=== PATIENT | female | born 1950 | race Caucasian/White ===

== ENCOUNTER → 2020-01-29 12:41 | Outpatient (CLI) | payer OTHER, SELFPAY ==
--- NOTE | 2020-01-29 12:44 | DI.RAD.S_ITS ---
PROCEDURE: XR FOOT LT MIN 3V INDICATIONS: Progressive bilateral foot pain TECHNIQUE: 3 views of the foot were acquired. COMPARISON: None. FINDINGS: Bones: No fractures or dislocations. No suspicious bony lesions. Postsurgical changes compatible with first tarsal-metatarsal joint arthrodesis. 2 orthopedic screws have been placed across the first tarsal-metatarsal joint. Orthopedic screws are intact. No lucencies are identified at the bone-hardware interface. Soft tissues: No tibiotalar joint effusion. Achilles tendon appears normal. IMPRESSION: No fracture. No acute osseous lesion. If symptoms and/or clinical suspicion for pathology persists, further assessment with repeat radiographs (7-10 days) or advanced imaging (e.g. CT, MRI or bone scan) may be helpful. Dictated by: Consuelo Nicole MD, PhD on 01/29/2020 at 16:54 Approved by: Consuelo Nicole MD, PhD on 01/29/2020 at 16:55
--- NOTE | 2020-01-29 12:44 | DI.RAD.S_ITS ---
PROCEDURE: XR FOOT RT MIN 3V INDICATIONS: Progressive bilateral foot pain TECHNIQUE: 3 views of the foot were acquired. COMPARISON: None. FINDINGS: Bones: No fractures or dislocations. No suspicious bony lesions. Small dorsal and plantar calcaneal bone spurs. Soft tissues: No tibiotalar joint effusion. Achilles tendon appears normal. IMPRESSION: No fracture. No acute osseous lesion. If symptoms and/or clinical suspicion for pathology persists, further assessment with repeat radiographs (7-10 days) or advanced imaging (e.g. CT, MRI or bone scan) may be helpful. Dictated by: Consuelo Nicole MD, PhD on 01/29/2020 at 16:55 Approved by: Consuelo Nicole MD, PhD on 01/29/2020 at 16:56
== END ==
PROVIDERS: PCP Family Medicine; Referring Provider Family Medicine; Visit Provider Family Medicine
DX: M79.672 Pain in left foot (principal); M79.671 Pain in right foot; M77.31 Calcaneal spur, right foot; Z98.1 Arthrodesis status
CPT/HCPCS: 73630

== ENCOUNTER → 2020-10-07 12:27 | Outpatient (CLI) | payer OTHER, SELFPAY ==
--- NOTE | 2020-10-07 12:30 | DI.RAD.S_ITS ---
PROCEDURE: XR FOOT LT MIN 3V INDICATIONS: L pinky toe wound r/o osteomyelitis w/ trauma TECHNIQUE: 3 views of the foot were acquired. COMPARISON: [facility], CR, XR FOOT LT MIN 3V, 01/29/2020, 12:37. [facility], CR, XR FOOT RT MIN 3V, 01/29/2020, 12:37. FINDINGS: Bones: Since the prior examination, there is believed to be progressive lucency involving the distal aspect of the proximal phalanx of the 5th toe. There is chronic dislocation of the 5th toe. Stable 1st tarsometatarsal joint postoperative hardware is seen. Age-appropriate bony degenerative changes are seen. Soft tissues: Distal soft tissue swelling is seen. IMPRESSION: Findings suspicious for osteomyelitis involving the distal aspect of the proximal phalanx of the 5th toe. If it would be helpful for clinical management decision making, please consider a dedicated forefoot MRI (without and with contrast) for further evaluation (assuming that there is no contraindication). Dictated by: Jose Cifuentes M.D. on 10/07/2020 at 11:44 Approved by: Jose Cifuentes M.D. on 10/07/2020 at 11:47
== END ==
PROVIDERS: PCP Family Medicine; Referring Provider Nurse Practitioner; Visit Provider Nurse Practitioner
DX: S91.106A Unspecified open wound of unspecified lesser toe(s) without damage to nail, initial encounter (principal); M79.89 Other specified soft tissue disorders
CPT/HCPCS: 73630

== ENCOUNTER 2020-10-07 13:56 | Emergency (ER) | payer OTHER, SELFPAY ==
[2020-10-07 14:18] VITALS: PULSE 71; RESP 12; TEMP 36.5; O2SAT 99
--- NOTE | 2020-10-07 16:08 | ED_ITS ---
HPI - Skin/Abscess/Foreign Bdy <GRIS Lira - Last Filed: 10/07/20 19:05> General Chief complaint: Skin/Abscess/Foreign Body Stated complaint: infection on left pinky toe, x 1 days Time Seen by Provider: 10/07/20 15:04 Source: patient Mode of arrival: Wheelchair Limitations: no limitations History of Present Illness HPI narrative: This is a 70-year-old female, former smoker, who has past medical history of hypertension, epilepsy, multiple foot surgeries presents to ED with chief complain of left 5th toe infection and pain after she was referred to [facility]. Patient reports initially injured affected toe 5 days ago after she hit on a chair. She is not sure if there was skin injury associated with this. She noticed warmth and redness to affected toe and metatarsal started 3-4 days ago and became concerned for infection. Patient denies fever, chills, nausea or vomiting, chest pain, dyspnea. Patient denies diabetes or immunocompromised condition. Patient's is Dr. Adamson at [facility] due to foot issues and nail care. Patient denies known exposure to COVID. X-ray was taken during today's walk-in clinic visit which indicates progressive lucency involving the distal aspect of proximal phalanx of the 5th toe on left foot. There is chronic dislocation of the 5th toe. Findings suspicious for osteomyelitis and recommended dedicated forefoot MRI with and without contrast for further evaluation. Related Data Home Medications Medication Instructions Recorded Confirmed ibuprofen PRN #0 08/27/16 10/07/20 omeprazole QDAY #0 08/27/16 10/07/20 Saccharomyces boulardii 250 mg 250 mg PO BID 01/29/20 10/07/20 capsule amlodipine 10 mg tablet 10 mg PO tab 01/29/20 10/07/20 dorzolamide 22.3 mg-timolol 6.8 EYE-LEFT 01/29/20 10/07/20 mg/mL eye drops erythromycin with ethanol 2 % TOP 01/29/20 10/07/20 topical gel ibandronate 150 mg tablet mg PO 01/29/20 10/07/20 dorzolamide 22.3 mg-timolol 6.8 EYE-BOTH 04/16/20 10/07/20 mg/mL eye drops ferrous sulfate PO 04/16/20 10/07/20 Previous Rx's Medication Instructions Recorded diclofenac sodium 1 % topical gel 2 gram TOP QID #100 gram 04/03/20 lisinopril 5 mg tablet 5 mg PO DAILY #90 tab 05/26/20 propranolol 10 mg tablet 10 mg PO BID #180 tab 05/28/20 triamcinolone acetonide 0.1 % 1 applictn TOP DAILY #30 gram 05/30/20 topical cream levetiracetam 500 mg tablet 500 mg PO BEDTIME #90 tab 07/24/20 levetiracetam 750 mg tablet 750 mg PO DAILY #90 tab 07/24/20 tramadol 50 mg tablet 50 mg PO Q8H #90 tab 07/24/20 gabapentin 300 mg capsule 300 mg PO BID #180 cap 08/09/20 amoxicillin-pot clavulanate 1 tab PO BID #20 tab 10/07/20 [Augmentin] doxycycline hyclate 100 mg capsule 100 mg PO BID 7 Days #14 cap 10/07/20 mupirocin 2 % topical ointment 1 applic TOPICAL BID #15 g 10/07/20 Allergies Allergy/AdvReac Type Severity Reaction Status Date / Time No Known Drug Allergies Allergy Verified 10/07/20 12:30 Review of Systems <GRIS Lira - Last Filed: 10/07/20 19:05> Review of Systems Narrative: General: Denies fever, chills, fatigue, malaise, sweats. HEENT: Denies sinus pain, ear pain, sore throat, difficulty swallowing, dizziness. Respiratory: Denies dyspnea, cough, wheezing, hemoptysis, sputum. Cardiovascular: Denies chest pain, palpitations, orthopnea, edema. Gastrointestinal: Denies nausea, vomiting, abdominal pain, diarrhea, constipation, melena. : Denies dysuria, frequency, incontinence, hematuria, urinary retention. Musculoskeletal: See HPI Skin: See HPI Patient History <GRIS Lira - Last Filed: 10/07/20 19:05> Medical History Bilateral bunions Claudication Epilepsy Fractures Hallux valgus History of urinary incontinence Hypertension Low iron (~2018) Medicare annual wellness visit, subsequent Neuropathy Seizure (~2016) Seizure grand mal Smoker Substance abuse (~2009) UTI (urinary tract infection) Surgical History Anesthesia History of bunionectomy (~2004) History of colonoscopy (~2018) History of esophagogastroduodenoscopy (EGD) (~2018) History of hysterectomy (~1989) Retinal detachment (~2018) Family History Father History of heart disease Mother Cancer Social History Smoking Status: Current every day smoker Tobacco: How many years used: 14 alcohol intake: former (Quit 2009 ) substance use type: marijuana (foot pain ) Smoking Status: Current every day smoker Substance Use Type: marijuana Exam <Antony GRIS Garcia - Last Filed: 10/07/20 19:05> Narrative Exam Narrative: GEN: Alert, oriented x 3, well appearing and nourished, and in no acute distress. Head: Normal cephalic, atraumatic. No scalp or temporal tenderness, palpable mass or rash. EYES: Pupils are equal, round, and reactive to light and accommodation. Extraocular muscles are intact bilaterally. There is no subconjunctival hemorrhage, exudate and sclera non-icteric. ENT: Hearing grossly intact. Nose without bleeding, purulent discharge or deviation. Mucous membrane moist, no mucosal lesion. Throat without erythema, tonsillar hypertrophy or exudate. Uvula in midline, airway patent. Neck: Trachea in midline. No JVD, non-tender without lymphadenopathy. No masses or thyroid megaly. Supple, non-tender and no meningeal signs. CARDIAC: Normal regular rate and rhythm without murmurs, gallops, or rubs. No chest wall tenderness. No peripheral edema, cyanosis or pallor. Capillary refill is less than 2 seconds. RESPIRATORY: Lungs are clear to auscultate bilaterally. No cough, wheezes, rales, or rhonchi. No stridor, respiratory distress, increase work of breathing, or accessary muscle used. ABD: Abdomen soft, nontender and non-distended. No guarding or rebound tenderness to palpate. Bowel sounds are normal in all 4 quadrants. There is no palpable masses or organomegaly. EXT: Left foot with Old surgical incision without signs of infection near 2nd metatarsal. Faint pulse on dorsal pedius bilaterally with intact sensation. Warmth, diffused mild erythema extending to left 5th toe to metatarsal. SKIN: Mild redness to left lateral metatarsal and toe with ulcerated skin lesion in medial aspect of 5th toe with light yellowish drainage/eschar. Affected site warm to touch. Warm, dry, normal color for patient. BACK: Nontender without deformity or crepitance. No flank tenderness. NEUROLOGICAL: Alert and oriented to place, time and person. Sensation and motor function intact bilaterally. No facial droops, dysphasia. PSYCHIATRIC: Good judgement and reason, without hallucinations, abnormal affect or abnormal behaviors during the examination. Patient is not suicidal. Initial Vital Signs Initial Vital Signs: Vital Signs Temperature 97.7 F 10/07/20 14:18 Pulse Rate 71 10/07/20 14:18 Respiratory Rate 12 10/07/20 14:18 Pulse Oximetry 99 10/07/20 14:18 <Matias Olivia DO - Last Filed: 10/07/20 19:21> Initial Vital Signs Initial Vital Signs: Vital Signs Temperature 97.7 F 10/07/20 14:18 Pulse Rate 71 10/07/20 14:18 Respiratory Rate 12 10/07/20 14:18 Pulse Oximetry 99 10/07/20 14:18 Scores <Antony EdwardsEVENS WilkersonP - Last Filed: 10/07/20 19:05> GCS [place] coma scale eye opening: Spontaneous [place] coma scale verbal response: Orientated Abhijit coma scale motor response: Obey commands Abhijit coma scale total score: 15 Course <[facility] Wil[facility]erson - Last Filed: 10/07/20 19:05> Orders Ordered: ED Orders 10/07/20 16:11 MR foot LT wo/w con Stat 10/07/20 16:37 C-Reactive Protein Quant Stat Complete Blood Count AUTO DIFF Stat Comprehensive Metabolic Panel Stat Erythrocyte Sedimentation Rate Stat Lactate (Lactic Acid) Stat Procalcitonin Stat Prolactin Stat 10/07/20 16:48 Blood Culture Stat 10/07/20 19:13 Wound Culture and Gram Stain Stat Reevaluation(s) Reevaluation #1: It has been challenging getting clear HPI nitially from the patient and she has been refusing full set of vs and wound culture. Patient provided with information and status as best as I can and at my best abilities. Waiting for MRI test results and informed patient about this. Patient provided nutritional support. Time: 18:20 Vital Signs Vital signs: Vital Signs - 8 hr 10/07/20 14:18 10/07/20 17:48 10/07/20 18:56 Temperature 97.7 F Pulse Rate 71 93 H 82 Respiratory Rate 12 Blood Pressure 145/85 H 149/69 H Pulse Oximetry 99 95 96 10/07/20 18:58 Temperature Pulse Rate 76 Respiratory Rate 18 Blood Pressure 149/69 H Pulse Oximetry 97 <Matias Olivia DO - Last Filed: 10/07/20 19:21> Orders Ordered: ED Orders 10/07/20 16:11 MR foot LT wo/w con Stat 10/07/20 16:37 C-Reactive Protein Quant Stat Complete Blood Count AUTO DIFF Stat Comprehensive Metabolic Panel Stat Erythrocyte Sedimentation Rate Stat Lactate (Lactic Acid) Stat Procalcitonin Stat Prolactin Stat 10/07/20 16:48 Blood Culture Stat 10/07/20 19:13 Wound Culture and Gram Stain Stat Vital Signs Vital signs: Vital Signs - 8 hr 10/07/20 14:18 10/07/20 17:48 10/07/20 18:56 Temperature 97.7 F Pulse Rate 71 93 H 82 Respiratory Rate 12 Blood Pressure 145/85 H 149/69 H Pulse Oximetry 99 95 96 10/07/20 18:58 Temperature Pulse Rate 76 Respiratory Rate 18 Blood Pressure 149/69 H Pulse Oximetry 97 MDM - Skin/Abscess/Foreign Bdy <GRIS Lira - Last Filed: 10/07/20 19:05> Differential Diagnosis Differential diagnosis: Likely cellulitis and other (Osteomyelitis) Medical Records Attestation: I reviewed the patient's medical records. Lab Data Attestation: I reviewed the patient's lab results. Result diagrams: 10/07/20 16:37 10/07/20 16:37 Labs: Lab Results 10/07/20 10/07/20 10/07/20 Range/Units 16:37 16:37 16:37 WBC 7.3 (4.5-11.0) X10^3/uL RBC 4.49 (4.0-5.2) X10^6/uL Hgb 14.5 (12.0-16.0) g/dL Hct 41.8 (36-46) % MCV 93.1 (80-100) fL MCH 32.2 (26-34) PG MCHC 34.6 (30-36) % RDW 12.5 (11.6-14.8) % Plt Count 285 (150-400) X10^3/uL Neut % (Auto) 65.1 (50-75) % Lymph % (Auto) 23.0 L (25-40) % Atlantic % (Auto) 8.5 (3-14) % Eos % (Auto) 2.5 (2-4) % Baso % (Auto) 0.9 (0-2) % Neut # (Auto) 4700 (2857-1340) /uL Lymph # (Auto) 1700 (1680-6202) /uL Atlantic # (Auto) 600 (0-900) /uL Eos # (Auto) 200 (0-450) /uL Baso # (Auto) 100 (0-100) /uL ESR 14 (0-20) MM/HR Sodium 134 L (137-145) mmol/L Potassium 4.0 (3.4-5.1) mmol/L Chloride 101 (98-107) mmol/L Carbon Dioxide 30 (22-32) mmol/L BUN 5 L (7-17) mg/dL Creatinine 0.74 (0.52-1.04) mg/dL Estimated GFR > 60.0 (>60) mL/min BUN/Creatinine Ratio 6.8 (6-22) Glucose 140 H (80-110) mg/dL Lactate 1.1 (0.7-2.1) mmol/L Calcium 9.5 (8.4-10.2) mg/dL Total Bilirubin 0.3 (0.2-1.3) mg/dL AST 31 (14-36) IU/L ALT 18 (<35) IU/L Alkaline Phosphatase 58 (38-126) U/L C-Reactive Protein < 0.5 (<1.0) mg/dL Total Protein 7.3 (6.3-8.2) g/dL Albumin 4.3 (3.5-5.0) g/dL Globulin 3.0 (1.7-4.1) g/dL Albumin/Globulin Ratio 1.4 (1.0-2.8) Procalcitonin (<0.5) ng/mL Prolactin 9.6 (3.0-18.6) ng/mL 02/15/21 Range/Units 16:37 WBC (4.5-11.0) X10^3/uL RBC (4.0-5.2) X10^6/uL Hgb (12.0-16.0) g/dL Hct (36-46) % MCV (80-100) fL MCH (26-34) PG MCHC (30-36) % RDW (11.6-14.8) % Plt Count (150-400) X10^3/uL Neut % (Auto) (50-75) % Lymph % (Auto) (25-40) % Atlantic % (Auto) (3-14) % Eos % (Auto) (2-4) % Baso % (Auto) (0-2) % Neut # (Auto) (4273-3217) /uL Lymph # (Auto) (2514-3232) /uL Atlantic # (Auto) (0-900) /uL Eos # (Auto) (0-450) /uL Baso # (Auto) (0-100) /uL ESR (0-20) MM/HR Sodium (137-145) mmol/L Potassium (3.4-5.1) mmol/L Chloride (98-107) mmol/L Carbon Dioxide (22-32) mmol/L BUN (7-17) mg/dL Creatinine (0.52-1.04) mg/dL Estimated GFR (>60) mL/min BUN/Creatinine Ratio (6-22) Glucose (80-110) mg/dL Lactate (0.7-2.1) mmol/L Calcium (8.4-10.2) mg/dL Total Bilirubin (0.2-1.3) mg/dL AST (14-36) IU/L ALT (<35) IU/L Alkaline Phosphatase (38-126) U/L C-Reactive Protein (<1.0) mg/dL Total Protein (6.3-8.2) g/dL Albumin (3.5-5.0) g/dL Globulin (1.7-4.1) g/dL Albumin/Globulin Ratio (1.0-2.8) Procalcitonin < 0.03 (<0.5) ng/mL Prolactin (3.0-18.6) ng/mL MDM Narrative Medical decision making narrative: This is a 70-year-old non-diabetic female presents to ED with left little toe pain for 5 days after she hit it on a chair and developed sings of infection with warmth and redness last 3-4 days. Patient denies fever, chills, nausea and vomiting. Patient nontoxic appearing. She is afebrile and has no tachycardia. Patient was evaluated in walk-in clinic initially and had x-ray test taken which raised concern for osteomyelitis. Labs were drawn and MRI test ordered. There is no leukocytosis, elevated CRP or ESR. There is no elevated lactic acidosis or procalcitonin. Chemistry test is unremarkable except mildly elevated serum glucose of 140. Normal kidney function test. Waiting for MRI test results to rule out osteomyelitis versus cellulitis. Patient refused wound culture at this time. Patient signed out to Dr. Olivia for MRI result to follow up. <Matias Olivia, - Last Filed: 10/07/20 19:21> Lab Data Labs: Lab Results 10/07/20 10/07/20 10/07/20 Range/Units 16:37 16:37 16:37 WBC 7.3 (4.5-11.0) X10^3/uL RBC 4.49 (4.0-5.2) X10^6/uL Hgb 14.5 (12.0-16.0) g/dL Hct 41.8 (36-46) % MCV 93.1 (80-100) fL MCH 32.2 (26-34) PG MCHC 34.6 (30-36) % RDW 12.5 (11.6-14.8) % Plt Count 285 (150-400) X10^3/uL Neut % (Auto) 65.1 (50-75) % Lymph % (Auto) 23.0 L (25-40) % Atlantic % (Auto) 8.5 (3-14) % Eos % (Auto) 2.5 (2-4) % Baso % (Auto) 0.9 (0-2) % Neut # (Auto) 4700 (9115-6460) /uL Lymph # (Auto) 1700 (7456-3248) /uL Atlantic # (Auto) 600 (0-900) /uL Eos # (Auto) 200 (0-450) /uL Baso # (Auto) 100 (0-100) /uL ESR 14 (0-20) MM/HR Sodium 134 L (137-145) mmol/L Potassium 4.0 (3.4-5.1) mmol/L Chloride 101 (98-107) mmol/L Carbon Dioxide 30 (22-32) mmol/L BUN 5 L (7-17) mg/dL Creatinine 0.74 (0.52-1.04) mg/dL Estimated GFR > 60.0 (>60) mL/min BUN/Creatinine Ratio 6.8 (6-22) Glucose 140 H (80-110) mg/dL Lactate 1.1 (0.7-2.1) mmol/L Calcium 9.5 (8.4-10.2) mg/dL Total Bilirubin 0.3 (0.2-1.3) mg/dL AST 31 (14-36) IU/L ALT 18 (<35) IU/L Alkaline Phosphatase 58 (38-126) U/L C-Reactive Protein < 0.5 (<1.0) mg/dL Total Protein 7.3 (6.3-8.2) g/dL Albumin 4.3 (3.5-5.0) g/dL Globulin 3.0 (1.7-4.1) g/dL Albumin/Globulin Ratio 1.4 (1.0-2.8) Procalcitonin (<0.5) ng/mL Prolactin 9.6 (3.0-18.6) ng/mL 10/07/20 Range/Units 16:37 WBC (4.5-11.0) X10^3/uL RBC (4.0-5.2) X10^6/uL Hgb (12.0-16.0) g/dL Hct (36-46) % MCV (80-100) fL MCH (26-34) PG MCHC (30-36) % RDW (11.6-14.8) % Plt Count (150-400) X10^3/uL Neut % (Auto) (50-75) % Lymph % (Auto) (25-40) % Atlantic % (Auto) (3-14) % Eos % (Auto) (2-4) % Baso % (Auto) (0-2) % Neut # (Auto) (0366-3116) /uL Lymph # (Auto) (1721-6570) /uL Atlantic # (Auto) (0-900) /uL Eos # (Auto) (0-450) /uL Baso # (Auto) (0-100) /uL ESR (0-20) MM/HR Sodium (137-145) mmol/L Potassium (3.4-5.1) mmol/L Chloride (98-107) mmol/L Carbon Dioxide (22-32) mmol/L BUN (7-17) mg/dL Creatinine (0.52-1.04) mg/dL Estimated GFR (>60) mL/min BUN/Creatinine Ratio (6-22) Glucose (80-110) mg/dL Lactate (0.7-2.1) mmol/L Calcium (8.4-10.2) mg/dL Total Bilirubin (0.2-1.3) mg/dL AST (14-36) IU/L ALT (<35) IU/L Alkaline Phosphatase (38-126) U/L C-Reactive Protein (<1.0) mg/dL Total Protein (6.3-8.2) g/dL Albumin (3.5-5.0) g/dL Globulin (1.7-4.1) g/dL Albumin/Globulin Ratio (1.0-2.8) Procalcitonin < 0.03 (<0.5) ng/mL Prolactin (3.0-18.6) ng/mL Imaging Data MRI Foot: Radiologist's Impression: [address] [id number] Resonance ReportSigned Patient: Ameena Camejo CMR#: [id number]: [id number]:[id number]/Sex: 70 / FDate of Service: 10/07/20Loc: EDAccession Number: [id number] Procedure: MR foot LT wo/w con Ordering Provider: Antony Garcia PROCEDURE: MR FOOT LT WO/W CON INDICATIONS: 5th toe infection, xr shows suspicious for osteo TECHNIQUE: Noncontrast sagittal T1 spin echo and T2 fast spin echo with fat saturation, long-axis T1 spin echo and T2 fast spin echo with fat saturation; short-axis T1 spin echo, proton density fast spin echo, and T2 fast spin echo with fat saturation through the forefoot. Post-contrast short axis, long axis, and sagittal T1 spin echo with fat saturation through the forefoot. COMPARISON: [facility], CR, XR FOOT LT MIN 3V, 01/29/2020, 12:37. [facility], CR, XR FOOT LT MIN 3V, 10/07/2020, 12:34. FINDINGS: Image quality: Excellent. Bones and joints: Hyperintense T2 signal in the marrow of the interphalangeal joint and distal phalanx with post gadolinium enhancement are consistent with osteomyelitis. The distal aspect of the 5th metatarsal demonstrates a 4 x 6 millimeter hyperintense T2/hypointense T1 focus which also demonstrates post gadolinium enhancement. No other marrow signal abnormality in the left foot. Soft tissues: The soft tissues around the little toe demonstrate hyperintense T2 signal consistent with edema. IMPRESSION: Findings are consistent with osteomyelitis of the 5th toe with surrounding cellulitis with equivocal findings in the distal 5th metacarpal. Dictated by: Bradford Andrews M.D. on 10/07/2020 at 18:48 Approved by: Bradford Andrews M.D. on 10/07/2020 at 19:00 Discharge Plan Departure Patient Disposition: Home Clinical Impression: Osteomyelitis Qualifiers: Osteomyelitis type: subacute Osteomyelitis location: foot Laterality: left Qualified Code(s): M86.272 - Subacute osteomyelitis, left ankle and foot Instructions: DI for Osteomyelitis Activity Restrictions/Additional Instructions: *You have been diagnosed with [chronic osteomyelitis of left great toe as evidenced on the MRI] *What to do: *Take medications as directed: Your prescription for the antibiotic has been electronically transmitted to [facility] in [place] at your request *Follow up with your primary care provider in 2-3 days, call for an appointment. Let them know you were seen in the Emergency Department and that we ask that you be seen in follow up *Return to ER if you should have any new, worsening or concerning symptoms Prescriptions: New amoxicillin-pot clavulanate [Augmentin] 875-125 mg tablet 1 tab PO BID Qty: 20 RF: 0 No Action doxycycline hyclate 100 mg capsule 100 mg PO BID 7 Days Qty: 14 RF: 0 mupirocin 2 % ointment 1 applic topical BID Qty: 15 RF: 0 ibuprofen 400 MG tablet PRN Qty: 0 RF: 0 omeprazole 20 MG capsule,delayed release(DR/EC) QDAY Qty: 0 RF: 0 diclofenac sodium 1 % gel 2 gram TOP QID Qty: 100 RF: 2 lisinopril 5 mg tablet 5 mg PO DAILY Qty: 90 RF: 0 propranolol 10 mg tablet 10 mg PO BID Qty: 180 RF: 1 triamcinolone acetonide 0.1 % cream 1 applictn TOP DAILY Qty: 30 RF: 1 gabapentin 300 mg capsule 300 mg PO BID Qty: 180 RF: 2 erythromycin with ethanol 2 % gel TOP RF: 0 dorzolamide-timolol 22.3-6.8 mg/mL drops EYE-LEFT RF: 0 amlodipine 10 mg tablet 10 mg PO RF: 0 ibandronate 150 mg tablet PO RF: 0 Saccharomyces boulardii [Florastor] 250 mg capsule 250 mg PO BID RF: 0 levetiracetam 500 mg tablet 500 mg PO BEDTIME Qty: 90 RF: 3 levetiracetam 750 mg tablet 750 mg PO DAILY Qty: 90 RF: 3 tramadol 50 mg tablet 50 mg PO Q8H Qty: 90 RF: 2 ferrous sulfate PO RF: 0 dorzolamide-timolol 22.3-6.8 mg/mL drops EYE-BOTH RF: 0 Referrals: Torrie Adamson DPM [Physician] - Augustin Garrison MD [Physician] - Anthony Nichols DO [Primary Care Provider] -
--- NOTE | 2020-10-07 16:11 | DI.MRI.S_ITS ---
PROCEDURE: MR FOOT LT WO/W CON INDICATIONS: 5th toe infection, xr shows suspicious for osteo TECHNIQUE: Noncontrast sagittal T1 spin echo and T2 fast spin echo with fat saturation, long-axis T1 spin echo and T2 fast spin echo with fat saturation; short-axis T1 spin echo, proton density fast spin echo, and T2 fast spin echo with fat saturation through the forefoot. Post-contrast short axis, long axis, and sagittal T1 spin echo with fat saturation through the forefoot. COMPARISON: [facility], CR, XR FOOT LT MIN 3V, 01/29/2020, 12:37. [facility], CR, XR FOOT LT MIN 3V, 10/07/2020, 12:34. FINDINGS: Image quality: Excellent. Bones and joints: Hyperintense T2 signal in the marrow of the interphalangeal joint and distal phalanx with post gadolinium enhancement are consistent with osteomyelitis. The distal aspect of the 5th metatarsal demonstrates a 4 x 6 millimeter hyperintense T2/hypointense T1 focus which also demonstrates post gadolinium enhancement. No other marrow signal abnormality in the left foot. Soft tissues: The soft tissues around the little toe demonstrate hyperintense T2 signal consistent with edema. IMPRESSION: Findings are consistent with osteomyelitis of the 5th toe with surrounding cellulitis with equivocal findings in the distal 5th metacarpal. Dictated by: Bradford Andrews M.D. on 10/07/2020 at 18:48 Approved by: Bradford Andrews M.D. on 10/07/2020 at 19:00
--- NOTE | 2020-10-07 16:38 | PC.NURSE ---
entered patients room and started to introduce myself. Patient began speaking loudly over me stating Who are you? The doctor? No one tells me who they are when they come in. I attempted to reintroduce myself and the patient started telling me in a loud voice that she doesnt know who anyone is. I showed her my badge and restated my name and job title. 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 I asked the patient if there is a vein that works or doesnt work? which vein works best? Again she spoke loudly over me stating no body here will listen. Sandeep MURRIETA was beginning to start an IV and I left the room.
[2020-10-07 16:44] LABS: Add Manual Diff / Slide Review NO; Basophils Absolute Auto 100 /uL (0-100); Basophils Percent Auto 0.9 % (0-2); Eosinophils Absolute Auto 200 /uL (0-450); Eosinophils Percent Auto 2.5 % (2-4); Hematocrit 41.8 % (36-46); Hemoglobin 14.5 g/dL (12.0-16.0); Lymphocytes Absolute Auto 1700 /uL (1100-4500); Mean Corpuscular HGB Conc 34.6 % (30-36); Mean Corpuscular Hemoglobin 32.2 PG (26-34); Mean Corpuscular Volume 93.1 fL (80-100); Monocytes Absolute Auto 600 /uL (0-900); Monocytes Percent Auto 8.5 % (3-14); Neutrophils Absolute Auto 4700 /uL (1500-7000); Neutrophils Percent Auto 65.1 % (50-75); Platelet Count 285 X10^3/uL (150-400); Red Blood Cell Count 4.49 X10^6/uL (4.0-5.2); Red Cell Distribution Width 12.5 % (11.6-14.8); White Blood Cell Count 7.3 X10^3/uL (4.5-11.0)
[2020-10-07 16:52] LABS: Lactate (Lactic Acid) 1.1 mmol/L (0.7-2.1)
[2020-10-07 16:56] LABS: Alanine Aminotransferase 18 IU/L (<35); Albumin 4.3 g/dL (3.5-5.0); Albumin Globulin Ratio 1.4 (1.0-2.8); Alkaline Phosphatase 58 U/L (38-126); Aspartate Aminotransferase 31 IU/L (14-36); BUN Creatinine Ratio 6.8 (6-22); Bilirubin Total 0.3 mg/dL (0.2-1.3); Blood Urea Nitrogen 5 mg/dL (7-17); Calcium 9.5 mg/dL (8.4-10.2); Carbon Dioxide 30 mmol/L (22-32); Chloride 101 mmol/L (98-107); Estimated Glomerular Filt Rate > 60.0 mL/min (>60); Glucose 140 mg/dL (80-110); HEMOLYSIS 16 (0-50); Sodium 134 mmol/L (137-145); Total Protein 7.3 g/dL (6.3-8.2)
[2020-10-07 16:58] LABS: C-Reactive Protein Quant < 0.5 mg/dL (<1.0)
--- NOTE | 2020-10-07 17:06 | PC.NURSE ---
agustina piper to introduce myself, patient walked right past me, ignoring me. She started to wander down the robbins and when asked If we can help her with anything she loudly stated I'm going to the bathroom, ambulated into the bathroom, slammed the door hard enough to cause the entire department to startle and look. When exiting the restroom the manometer technician was waiting with a wheelchair, she ignored him, walked past him loudly and firmly stating get me a bag to noone in particular. manometer technician followed the patient into her room with this nurse. Patient refused vitals and was transported to MRI
[2020-10-07 17:10] LABS: Prolactin 9.6 ng/mL (3.0-18.6)
[2020-10-07 17:41] LABS: Erythrocyte Sedimentation Rate 14 MM/HR (0-20)
[2020-10-07 17:48] VITALS: BP 145/85; PULSE 93; O2SAT 95
--- NOTE | 2020-10-07 17:50 | PC.NURSE ---
Patient refuses to answer any of my assessment questions. refuses to show me her injured toe. Patient asked if she can eat something because she is hungry. She was told she is considered a surgical candidate and should not eat or drink anything. 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 Then walked out of the room around the corner and began to drink a soda she appeared to by hiding from this nurse. Patient asked if she was sneaking something to drink she said she is not answering any more questions and all I can do is take blood pressure and get out of here. Vitals taken.
--- NOTE | 2020-10-07 17:57 | PC.NURSE ---
Addendum entered by Pauline Valencia R.N. 10/07/20 18:56: triage performed at 1357 Original Note: Patient refused to let RN obtain blood pressure in triage.
[2020-10-07 18:10] LABS: Procalcitonin < 0.03 ng/mL (<0.5)
--- NOTE | 2020-10-07 18:26 | PC.NURSE ---
When in room pt calling staff into room & raising voice at them, unable to be verbally redirected. Told that yelling at staff was not acceptable. Offered to intercede on perceived needs however pt yelled at me your not listening to me!. told I was stupid and a terrible nurse. I again asked pt to refrain from calling staff name and from being verbally aggressive. Pt declined to do so. Provider aware.
[2020-10-07 18:56] VITALS: BP 149/69; PULSE 82; O2SAT 96
[2020-10-07 18:58] VITALS: BP 149/69; PULSE 76; RESP 18; O2SAT 97
[2020-10-07] MEDS: AMOXICILLIN/CLAV 875/125 MG 1 TAB PO (19:33)
--- NOTE | 2020-10-07 22:08 | PC.NURSE ---
Patient called in at 2208 and asked why her IV was in place. She was informed again that she needed to return to the ED to have her IV taken out. She asked if there was a mix up about her medication prescription. She thought she was supposed to have IV antibiotics. She was instructed that her discharge paperwork states that she was prescribed oral antibiotics and discharged according to the ED physicians request.
--- NOTE | 2020-10-07 22:15 | PC.NURSE ---
[facility] dispatch was called and informed of the situation and a call was put out to check on the patient and reiterate that she needs to return to the ER to have her IV taken out.
--- NOTE | 2020-10-07 22:21 | PC.NURSE ---
Deputy Edwards called in to the ED and stated that he was going to make contact and let her know that she needed to go to [facility] and have it removed.
--- NOTE | 2020-10-07 22:44 | PC.NURSE ---
Roberot Edwards called back at 2243 and stated that the patient was contacted in person and informed that she needed to have her IV taken out. 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 The stated that her IV was dressed and hemostasis was achieved. Nothing further. Provider Notified.
== END 2020-10-07 19:53 | disposition home or self-care (01) ==
PROVIDERS: Nurse Practitioner Family; Emergency Provider Emergency Medicine; PCP Family Medicine
DX: M86.272 Subacute osteomyelitis, left ankle and foot (principal); I10 Essential (primary) hypertension; W22.8XXA Striking against or struck by other objects, initial encounter; M79.89 Other specified soft tissue disorders; S91.106A Unspecified open wound of unspecified lesser toe(s) without damage to nail, initial encounter
CPT/HCPCS: 36415; 73630; 73720; 80053; 83605; 84145; 84146; 85025; 85651; 86140; 87040; 99283; 99284; A9579

== ENCOUNTER → 2020-12-26 14:05 | Outpatient (CLI) | payer OTHER, SELFPAY ==
[2020-12-26 15:06] LABS: HEMOLYSIS < 15 (0-50); Iron 123 ug/dL (37-170)
[2020-12-26 15:08] LABS: Alanine Aminotransferase 17 IU/L (<35); Albumin 4.6 g/dL (3.5-5.0); Albumin Globulin Ratio 1.7 (1.0-2.8); Alkaline Phosphatase 67 U/L (38-126); Aspartate Aminotransferase 30 IU/L (14-36); BUN Creatinine Ratio 10.6 (6-22); Bilirubin Total 0.3 mg/dL (0.2-1.3); Blood Urea Nitrogen 7 mg/dL (7-17); Carbon Dioxide 27 mmol/L (22-32); Chloride 102 mmol/L (98-107); Estimated Glomerular Filt Rate > 60.0 mL/min (>60); Globulin 2.7 g/dL (1.7-4.1); Glucose 74 mg/dL (80-110); HEMOLYSIS < 15 (0-50); Potassium 4.2 mmol/L (3.4-5.1); Sodium 137 mmol/L (137-145); Total Protein 7.3 g/dL (6.3-8.2)
[2020-12-26 15:16] LABS: Add Manual Diff / Slide Review NO; Basophils Absolute Auto 100 /uL (0-100); Basophils Percent Auto 0.9 % (0-2); Eosinophils Absolute Auto 200 /uL (0-450); Eosinophils Percent Auto 2.1 % (2-4); Hematocrit 44.2 % (36-46); Hemoglobin 15.4 g/dL (12.0-16.0); Lymphocytes Absolute Auto 1500 /uL (1100-4500); Mean Corpuscular HGB Conc 34.8 % (30-36); Mean Corpuscular Hemoglobin 32.7 PG (26-34); Mean Corpuscular Volume 93.9 fL (80-100); Monocytes Absolute Auto 800 /uL (0-900); Monocytes Percent Auto 9.7 % (3-14); Neutrophils Absolute Auto 5600 /uL (1500-7000); Neutrophils Percent Auto 69.3 % (50-75); Platelet Count 360 X10^3/uL (150-400); Red Cell Distribution Width 12.7 % (11.6-14.8); White Blood Cell Count 8.1 X10^3/uL (4.5-11.0)
[2020-12-26 15:18] LABS: Percent Iron Saturation 41 % (15-50); Total Iron Binding Capacity 302 ug/dL (265-497); Transferrin 249 mg/dL (206-381)
[2020-12-26 15:25] LABS: Free T4, Direct Thyroxine 1.14 ng/dL (0.78-2.19)
[2020-12-26 15:39] LABS: Thyroid Stimulating Hormone 1.71 uIU/mL (0.47-4.68)
[2020-12-26 15:42] LABS: Ferritin 41 ng/mL (11-264)
[2020-12-31 14:05] LABS: Levetiracetam Keppra 35.1 ug/mL (10.0-40.0)
== END ==
PROVIDERS: PCP Family Medicine; Referring Provider Registered Nurse; Visit Provider Family Medicine
DX: R53.83 Other fatigue (principal); E61.1 Iron deficiency; G40.909 Epilepsy, unspecified, not intractable, without status epilepticus
CPT/HCPCS: 80053; 80177; 82728; 83540; 83550; 84439; 84443; 85025

== ENCOUNTER → 2021-03-10 11:43 | Outpatient (CLI) | payer OTHER, SELFPAY ==
--- NOTE | 2021-03-10 11:48 | DI.RAD.S_ITS ---
PROCEDURE: XR FOOT LT MIN 3V INDICATIONS: left foot pain focus on toes TECHNIQUE: 3 views of the foot were acquired. COMPARISON: [facility] [place], CR, XR FOOT 3+ VIEWS LEFT, 11/25/2020, 12:59. [facility], CR, XR FOOT LT MIN 3V, 10/07/2020, 12:34. FINDINGS: Bones: 1st MTP fusion is present. Postsurgical changes are present at the 5th digit. There are overall scattered moderate to severe IP degenerative narrowing. No distinct erosions are identified. Soft tissues: No tibiotalar joint effusion. Achilles tendon appears normal. IMPRESSION: Postsurgical and degenerative change. No visualized acute fracture or dislocation. However, if clinical concern and/or pain persist, short interval imaging followup in 7-10 days is recommended, as occult injury cannot be definitively excluded. Dictated by: Shanae Graves M.D. on 03/10/2021 at 14:03 Approved by: Shanae Graves M.D. on 03/10/2021 at 14:04
[2021-03-10 12:24] LABS: Add Manual Diff / Slide Review NO; Basophils Absolute Auto 100 /uL (0-100); Eosinophils Absolute Auto 200 /uL (0-450); Eosinophils Percent Auto 2.3 % (2-4); Hematocrit 41.9 % (36-46); Hemoglobin 14.5 g/dL (12.0-16.0); Lymphocytes Absolute Auto 1600 /uL (1100-4500); Lymphocytes Percent Auto 20.4 % (25-40); Mean Corpuscular HGB Conc 34.5 % (30-36); Mean Corpuscular Hemoglobin 32.3 PG (26-34); Mean Corpuscular Volume 93.7 fL (80-100); Monocytes Absolute Auto 700 /uL (0-900); Monocytes Percent Auto 8.7 % (3-14); Neutrophils Absolute Auto 5400 /uL (1500-7000); Neutrophils Percent Auto 67.6 % (50-75); Platelet Count 296 X10^3/uL (150-400); Red Blood Cell Count 4.47 X10^6/uL (4.0-5.2); Red Cell Distribution Width 12.8 % (11.6-14.8); White Blood Cell Count 7.9 X10^3/uL (4.5-11.0)
[2021-03-10 12:41] LABS: Alanine Aminotransferase 18 IU/L (<35); Albumin 4.3 g/dL (3.5-5.0); Albumin Globulin Ratio 1.5 (1.0-2.8); Alkaline Phosphatase 55 U/L (38-126); Aspartate Aminotransferase 33 IU/L (14-36); BUN Creatinine Ratio 10.7 (6-22); Bilirubin Total 0.4 mg/dL (0.2-1.3); Blood Urea Nitrogen 6 mg/dL (7-17); Calcium 9.5 mg/dL (8.4-10.2); Carbon Dioxide 27 mmol/L (22-32); Chloride 103 mmol/L (98-107); Estimated Glomerular Filt Rate > 60.0 mL/min (>60); Globulin 2.9 g/dL (1.7-4.1); Glucose 95 mg/dL (80-110); HEMOLYSIS < 15 (0-50); Potassium 4.1 mmol/L (3.4-5.1); Sodium 135 mmol/L (137-145); Total Protein 7.2 g/dL (6.3-8.2)
[2021-03-10 12:51] LABS: Erythrocyte Sedimentation Rate 5 MM/HR (0-20)
== END ==
PROVIDERS: PCP Family Medicine; Referring Provider Family Medicine; Visit Provider Family Medicine
DX: M79.672 Pain in left foot (principal); S91.109A Unspecified open wound of unspecified toe(s) without damage to nail, initial encounter; G40.909 Epilepsy, unspecified, not intractable, without status epilepticus; E61.1 Iron deficiency; I10 Essential (primary) hypertension
CPT/HCPCS: 36415; 73630; 80053; 80177; 85025; 85651